=== PATIENT | female | born 1955 | race Two or more races ===

== ENCOUNTER 2018-03-16 12:32 | Emergency (ER) | payer OTHER ==
[~2018-03-16] VITALS: Ht 165.1 cm; Wt 524.4 kg
[2018-03-16] MEDS ORDERED: DILANTIN100 MG (13:10)
[2018-03-16] MEDS ORDERED: SEROPHENE50 MG (13:10)
[2018-03-16] MEDS ORDERED: AMBIEN10 MG (13:10)
[2018-03-16] MEDS ORDERED: CLONAZEPAM2 MG (13:11)
[2018-03-16] MEDS ORDERED: PERCOCET 10-321 EACH (13:11)
[2018-03-16] MEDS ORDERED: TRAMADOL HCL E100 M1 (13:12)
[2018-03-16] MEDS ORDERED: NEURONTIN600 MG (13:12)
== END 2018-03-16 19:42 | disposition home or self-care (01) ==
LOC: ER 12:32
DX: K52.9 Noninfective gastroenteritis and colitis, unspecified (principal)